=== PATIENT | female | born 1955 | race Caucasian/White ===

== ENCOUNTER → 2020-01-30 10:04 | Outpatient (BNVA) | payer MEDICARE, SELFPAY | PROVIDERS: Visit Provider Nurse Practitioner Family | DX: Z11.59 Encounter for screening for other viral diseases (principal); J06.9 Acute upper respiratory infection, unspecified; R43.0 Anosmia | CPT/HCPCS: 87635 ==

== ENCOUNTER → 2020-09-03 08:28 | Outpatient (BNVA) | payer MEDICARE, SELFPAY | PROVIDERS: Visit Provider Surgery | DX: D50.9 Iron deficiency anemia, unspecified (principal); Z20.822 Contact with and (suspected) exposure to COVID-19 | CPT/HCPCS: 87635 ==

== ENCOUNTER 2020-09-08 05:59 | Day surgery (SDC) | payer MEDICARE, SELFPAY ==
[2020-09-04 12:41] VITALS: BMI 30.4
[2020-09-08 06:20] VITALS: BP 149/81; PULSE 84; RESP 18; TEMP 36.7; O2SAT 96
[2020-09-08] MEDS: sodium chloride 0.9% 1,000 ML 30 ML IV (06:33)
--- NOTE | 2020-09-08 06:39 | ANES.PREANE2 ---
Pre-Anesthetic Assessment Pre-Anesthetic Assessment: Height/Weight: Height 1.73 m Weight 90.718 kg Temp Pulse Resp BP Pulse Ox 98.1 F 84 18 149/81 96 09/08/20 06:20 09/08/20 06:20 09/08/20 06:20 09/08/20 06:20 09/08/20 06:20 Preop Diagnosis: panendoscopy Proposed Procedure: Operation Date: 09/08/20 07:00 Proposed Procedures p EGD 04402 [id number] d50.9(Not Applicable) - London Cardozo MD s Colonoscopy(Not Applicable) - London Cardozo MD Familial anesthetic complications: none Was Beta Jessenia taken within 24 hours: N/A Was Clonidine taken within 24 hours: N/A Last intake: Intake Last Liquid Date 09/07/20 Last Liquid Time 22:30 Last Solid Date 09/06/20 Last Solid Time 22:00 Last Intake: 22:30 Social: Social History: No alcohol and No tobacco Exam: Pre-Anes Outpt Exam: alert, oriented x 3, clear to auscultation bilaterally and regular rate & rhythm Airway: Submandibular: WNL Cervical ROM: WNL MP: 1 Additional comments: upper plate History/ROS: No significant history except as noted CV/HEM: CV/HEM: HTN Anesthetic Plan: ASA status: 2 Anesthesia: MAC Risk of > 500 ml blood loss (7ml/kg in children): No Meds/Allergies Current Medications: Current Medications Generic Name Dose Route Start Last Admin Trade Name Freq PRN Reason Stop Dose Admin Sodium Chloride 1,000 mls @ 30 ml s/hr 09/08/20 06:15 09/08/20 06:33 Sodium Chloride 0.9% IV 09/09/20 06:14 30 mls/hr .Q24H GAMAL Administration PFSH Anesthesia PFSH: Medical History Depression Dyslipidemia Hypertension Surgical History History of hysterectomy Family History Denies family history of Anesthesia complication Bleeding disorder Social History Smoking and tobacco status: never smoked Alcohol intake: never Data Anesthesia Cardiac Studies: No Data to Display
--- NOTE | 2020-09-08 07:01 | W.PM.OPSUD ---
Surgery/Procedure H&P Update DATE OF PROCEDURE: September 08, 2020 DATE H&P PERFORMED: 08/25/20 H&P UPDATE INFORMATION: I have reviewed H&P completed within last 30 days, I have examined patient prior to procedure and No changes to prior documentation PREOP DIAGNOSIS: panendoscopy PLANNED PROCEDURE: Operation Date: 09/08/20 07:00 Proposed Procedures p EGD [id number] d50.9(Not Applicable) - London Cardozo MD s Colonoscopy(Not Applicable) - [place] Cardozo MD
[2020-09-08 07:47] VITALS: BP 104/44; PULSE 67; RESP 18; TEMP 36.1; O2SAT 97
[2020-09-08 08:03] VITALS: BP 112/49; PULSE 67; RESP 18; O2SAT 97
--- NOTE | 2020-09-08 21:20 | ANE.PACU2 ---
Inpatient post-anesthesia follow up: Airway intact: Yes Vital signs: Temperature 96.9 F Pulse Rate 67 Respiratory Rate 18 Blood Pressure 112/49 Pulse Oximetry 97 Oxygen Delivery Me thod Room Air Oxygen Flow Rate Fraction of Inspir ed Oxygen Hydration adequate: Yes Nausea and vomiting: No Pain level: 1 Mental status: Baseline
== END 2020-09-08 08:25 | disposition home or self-care (01) ==
PROVIDERS: Visit Provider Surgery
PROC: 0DJ08ZZ Inspection of Upper Intestinal Tract, Via Natural or Artificial Opening Endoscopic (ICD-10-PCS; CPT 43235; principal; 2020-09-08 07:00)
PROC: 0DJD8ZZ Inspection of Lower Intestinal Tract, Via Natural or Artificial Opening Endoscopic (ICD-10-PCS; CPT 45378; 2020-09-08 07:00)
DX: D50.9 Iron deficiency anemia, unspecified (principal); C20 Malignant neoplasm of rectum; K57.30 Diverticulosis of large intestine without perforation or abscess without bleeding; E78.5 Hyperlipidemia, unspecified; I10 Essential (primary) hypertension
CPT/HCPCS: 43235; 45385; 88305; 88331; 96360; 96361; J2704; J7030

== ENCOUNTER 2020-09-09 10:52 | Outpatient (CLI) | payer MEDICARE, SELFPAY ==
[2020-09-08 13:57] VITALS: BMI 30.4
[2020-09-15 11:21] LABS: Miscellaneous Test See Scanned Lab Rpt
== END 2020-09-09 15:00 | disposition home or self-care (01) ==
LOC: LAB 04-04 17:17
PROVIDERS: Visit Provider Surgery
DX: C20 Malignant neoplasm of rectum (principal)
CPT/HCPCS: 88341; 88342

== ENCOUNTER 2020-09-11 12:04 | Outpatient (CLI) | payer MEDICARE, SELFPAY ==
[2020-09-11 12:41] LABS: Blood Urea Nitrogen 14 mg/dL (8-23)
[2020-09-11] MEDS: iohexol 300 mg/mL 50 mL Btl PO (13:48)
[2020-09-11] MEDS: iohexol 300 mg/mL 100 mL Btl IV (13:49)
--- NOTE | 2020-09-11 15:00 | CT_ITS ---
WS: [id number] CT ABDOMEN AND PELVIS WITH CONTRAST HISTORY: C20 - Malignant neoplasm of rectum TECHNIQUE: Imaging performed of the abdomen and pelvis with IV contrast. Single phase imaging of the abdomen. Coronal and sagittal reformats are submitted. All CT scans at [facility] use at least one of these dose optimization techniques: automated exposure control; mA and/or kV adjustment per patient size (includes targeted exams where dose is matched to clinical indication); or iterativ e reconstruction. IV CONTRAST: Omnipaque 300; 95 mL IV. Oral contrast: Yes. DLP: 1664.64 mGy.cm COMPARISON: 11/14/2010 Lower thorax: There are 2 adjacent 5 mm nodules at the LEFT lung base which were present in 2011 with only minimal increase in size. Heart is normal size. No hiatal hernia. Liver/biliary system: Focal hypodensity in the medial RIGHT lobe of the liver similar to the prior st udy from 2010. No bile duct dilatation. Normal portal vein. Gallbladder: Normal. No gallstones or wall thickening. No pericholecystic fluid. Pancreas: Normal size pancreas and pancreatic duct. No adjacent inflammation. Spleen: Normal size spleen. No mass or infarct. Adrenal glands: Normal. Right kidney: Numerous hypodensities within the kidney. These range in size from a few millimeters to 28 mm. The largest cystic mass contains a calcification within the wall. There are a few soft tissue masses which are low-attenuation. Majority of these nodules cannot be characterized as cysts. These low density nodules appear new since 2010. The largest cyst with calcification in the wall was presen t on the prior study. Left kidney: Numerous hypoattenuating masses and nodules. These are new since the prior study. These are not completely cystic. Aorta: Mild atherosclerosis with no aneurysm. Lymphadenopathy: None. Free fluid: None. GI tract: Normal appendix. No GI tract obstruction. Sigmoid and descending colon diverticulosis witho ut acute diverticulitis. There is a soft tissue mass distending the rectum seen best on the coronal i mage. This mass measures 3.0 x 4.8 cm. Abdominal wall: Unremarkable abdominal wall. No hernia. Pelvis: No free fluid. No definite adenopathy. Bones: L4 anterolisthesis by [address]/CT abdomen pelvis w con* [id number] IMPRESSION: 1. Soft tissue mass centered in the rectum measures 3.0 x 4.8 cm. 2. Innumerable low-attenuation masses within each kidney. Majority of these ca nnot be characterized as cysts. These may be complex cysts. Early neoplasm is n ot excluded. Consider six-month dedicated renal mass CT protocol for further ad ditional evaluation. 3. Long-term stability 5 mm LEFT lower lobe pulmonary nodules. 4. No adenopathy. 5. Sigmoid diverticulosis without acute diverticulitis.
[2020-09-11 16:05] LABS: Basophils % 0.3 %; Eosinophils % 0.3 %; Hematocrit 30.1 % (37.0-47.0); Hemoglobin 8.6 g/dL (11.5-15.3); Lymphocytes % 16.5 %; Mean Corpuscular HGB Conc 28.6 g/dL (30.0-36.0); Mean Corpuscular Hemoglobin 18.9 pg (28.0-34.0); Mean Corpuscular Volume 66.2 fL (81-99); Mean Platelet Volume 8.7 fL (7.4-10.4); Monocytes # 1.1 10^3/uL (0.2-0.9); Monocytes % 9.3 %; Neutrophils # 8.73 10^3/uL (1.8-7.7); Neutrophils % 73.1 %; Nucleated Red Blood Cells % 0 %; Platelet Count 340 10^3/cmm (130-400); Red Blood Count 4.55 10^6/uL (4.1-5.3); Red Cell Distribution Width 17.7 % (12.1-15.1); White Blood Count 11.9 10^3/uL (4.0-10.0)
[2020-09-11 16:24] LABS: Anion Gap 14.2 (5-19); Blood Urea Nitrogen 15 mg/dL (8-23); Calcium 8.1 mg/dL (8.5-10.5); Carbon Dioxide 23 mmol/L (22-29); Chloride 99 mmol/L (98-107); Glucose 102 mg/dL (65-115); Iron 9 ug/dL (37-145); Osmolality Calculated 277 mOsm/kg (285-295); Percent Saturation 2.8 % (20-50); Potassium 3.2 mmol/L (3.5-5.1); Sodium 133 mmol/L (136-145); Total Iron Binding Capacity 320 mcg/dl; Unsaturated Iron Binding 311 ug/dL (112-347)
== END 2020-09-11 12:05 | disposition home or self-care (01) ==
PROVIDERS: Visit Provider Surgery
DX: C20 Malignant neoplasm of rectum (principal); K62.5 Hemorrhage of anus and rectum; K57.30 Diverticulosis of large intestine without perforation or abscess without bleeding; R91.1 Solitary pulmonary nodule; N28.89 Other specified disorders of kidney and ureter
CPT/HCPCS: 36415; 74177; 80048; 82378; 82565; 83540; 83550; 84520; 85025; 86850; 86900

== ENCOUNTER → 2025-03-06 14:19 | Outpatient (BNVA) | payer MEDICARE, SELFPAY | PROVIDERS: Visit Provider Registered Nurse Neonatal Intensive Care | DX: M22.41 Chondromalacia patellae, right knee (principal) | CPT/HCPCS: 73562 ==

== ENCOUNTER → 2025-03-17 13:43 | Outpatient (BNVA) | payer MEDICARE, SELFPAY | PROVIDERS: PCP Internal Medicine; Visit Provider Orthopaedic Surgery | DX: M17.11 Unilateral primary osteoarthritis, right knee (principal) | CPT/HCPCS: 20610; 73560; 73565; 99204; J3301; J3490; J9999 ==

== ENCOUNTER → 2025-03-31 13:46 | Outpatient (BNVA) | payer MEDICARE, SELFPAY | PROVIDERS: PCP Internal Medicine; Visit Provider Orthopaedic Surgery | DX: M17.11 Unilateral primary osteoarthritis, right knee (principal) | CPT/HCPCS: 99213 ==